=== PATIENT | male | born 1960 | race Native Hawaiian/Other Pacific Islander ===

== ENCOUNTER 2017-01-27 11:03 | Emergency (ER) | payer OTHER ==
[2017-01-27 11:12] VITALS: TEMP 98.5
[2017-01-27] MEDS ORDERED: Acetaminophen-Codeine 300/30 mg Tab PO STA (11:38)
[2017-01-27] MEDS ORDERED: Acetaminophen-Codeine 300/30 mg Tab PO ONE (11:43)
[2017-01-27 11:50] LABS: BASO # 0.1 K/uL (0.0-0.2); BASO % 0.7 % (0.0-2.0); EOS # 0.2 K/uL (0.0-0.7); EOS % 2.1 % (0.0-4.0); HEMATOCRIT 42.3 % (35.0-51.0); LYMPH # 2.3 K/uL (1.0-4.3); LYMPH % 30.8 % (20.0-40.0); MEAN CELL VOLUME 90.2 fL (80.0-94.0); MEAN CORPUSCULAR HEMOGLOBIN 30.3 pg (27.0-31.0); MEAN CORPUSCULAR HGB CONC 33.6 g/dL (33.0-37.0); MEAN PLATELET VOLUME 6.6 fL (7.2-11.7); MONO # 0.5 K/uL (0.0-0.8); MONO % 7.4 % (0.0-10.0); WHITE BLOOD COUNT 7.4 K/uL (4.8-10.8)
[2017-01-27 11:58] LABS: CHLORIDE 98 mmol/L (98-107); POTASSIUM 3.2 mmol/L (3.6-5.2); SODIUM 139 mmol/L (132-148)
[2017-01-27 12:00] LABS: ALB/GLOB RATIO 1.3 (1.0-2.1); AST/SGOT 36 U/L (17-59); BILIRUBIN,TOTAL 0.7 mg/dL (0.2-1.3); CARBON DIOXIDE 31 mmol/L (22-30); GFR AFRICAN-AMERICAN > 60; TOTAL PROTEIN 7.7 g/dL (6.3-8.3)
[2017-01-27 12:01] LABS: ALKALINE PHOSPHATASE 68 U/L (38-126); ALT/SGPT 57 U/L (21-72); BLOOD UREA NITROGEN 14 mg/dL (9-20); CALCIUM 8.3 mg/dl (8.6-10.4); GLUCOSE,RANDOM 99 mg/dL (75-110)
--- NOTE | 2017-01-27 13:55 | C.PDOC ---
History Of Present Illness 56 y/o male presents to emergency department with complaint of left leg pain and swelling, primarily at the lower left thigh, for several days. Patient reports history of varicose veins in the area that sometimes become more painful and swollen. He denies any other medical problems, does not take any medications. Patient also denies chest pain, fever, cough, SOB, falls/injuries. Time Seen by Provider: 01/27/17 11:17 Chief Complaint (Nursing): Lower Extremity Problem/Injury History Per: Patient History/Exam Limitations: no limitations Onset/Duration Of Symptoms: Days Current Symptoms Are (Timing): Worse Severity: Moderate Past Medical History Reviewed: Historical Data, Nursing Documentation, Vital Signs Vital Signs: Last Vital Signs Temp 98.5 F 01/27/17 11:08 Pulse 81 01/27/17 14:36 Resp 16 01/27/17 14:36 BP 161/108 H 01/27/17 14:36 Pulse Ox 97 01/27/17 14:36 - Medical History PMH: No Chronic Diseases Family History: States: No Known Family Hx - Social History Hx Alcohol Use: No Hx Substance Use: No - Immunization History Hx Tetanus Toxoid Vaccination: No Hx Influenza Vaccination: No Hx Pneumococcal Vaccination: No Review Of Systems Except As Marked, All Systems Reviewed And Found Negative. Constitutional: Negative for: Fever, Chills Cardiovascular: Negative for: Chest Pain, Palpitations Respiratory: Negative for: Cough, Shortness of Breath, Wheezing Gastrointestinal: Negative for: Nausea, Vomiting Musculoskeletal: Positive for: Leg Pain (left leg, +swelling) Skin: Negative for: Rash Neurological: Negative for: Headache, Dizziness Physical Exam - Physical Exam Appears: Well, Non-toxic, Other (in mild pain ) Skin: Normal Color, Warm, Dry, No Rash Head: Normacephalic Oral Mucosa: Moist Cardiovascular: Rhythm Regular Respiratory: Normal Breath Sounds, No Rales, No Rhonchi, No Wheezing Gastrointestinal/Abdominal: Normal Exam, Bowel Sounds, Soft, No Tenderness Back: Normal Inspection Extremity: Normal ROM, No Calf Tenderness, Capillary Refill (< 2 sec all digits ), No Deformity, Other (L Lower Extremity: left inferior/medial thigh with large varicose vein, tender and swollen to palpation, no erythema, +warmth to touch) Pulses: Left Dorsalis Pedis: Normal, Right Dorsalis Pedis: Normal Neurological/Psych: Oriented x3, Normal Sensation Gait: Steady ED Course And Treatment - Laboratory Results Result Diagrams: 01/27/17 11:42 01/27/17 11:42 O2 Sat by Pulse Oximetry: 99 (RA) Pulse Ox Interpretation: Normal Progress Note: Blood work and venous doppler ordered. Patient given PO Pain medication. Blue wrap applied to affected area by nurse, checked by me. Reevaluation Time: 14:30 Reassessment Condition: Improved - Physician Consult Information Physician Contacted: Igor Treviño Jr. Outcome Of Conversation: Discussed patient with Dr. Treviño, since clot is in the superificial vein, he recommends no anticoagulation at this time. Patient to be treated with blue wrap/leg elevation, NSAIDs, and repeat doppler in 1 week to r/o progression of clot. Patient instructed to follow up with Dr. Treviño in the office in 1-2 days. He understands he should return to ED if symptoms worsen. Disposition Counseled Patient/Family Regarding: Studies Performed, Diagnosis, Need For Followup, Rx Given - Disposition Referrals: Igor Treviño Jr., MD [Staff Provider] - [facility] [Outside] Disposition: HOME/ ROUTINE Disposition Time: 14:30 Condition: STABLE Additional Instructions: FOLLOW UP WITH DR TREVIÑO WITHIN 1 WEEK YOU NEED REPEAT ULTRASOUND OF LEG IN 1 WEEK USE MEDICATIONS DIRECTED ELEVATE LEG RETURN TO ER IF YOU DEVELOP ANY CONCERNING SYMPTOMS Prescriptions: amLODIPine [Norvasc] 5 mg PO DAILY #30 tab Naproxen [Naprosyn Tab] 375 mg PO BID PRN #25 tab PRN Reason: pain Instructions: Superficial Thrombophlebitis (ED) Print Language: BAHAMIAN - POA Present On Arrival: None - Clinical Impression Clinical Impression: Saphenous vein clot - Scribe Statement The provider has reviewed the documentation as recorded by the Tadeo Higgins All medical record entries made by the Boydiblicha were at my direction and personally dictated by me. I have reviewed the chart and agree that the record accurately reflects my personal performance of the history, physical exam, medical decision making, and the department course for this patient. I have also personally directed, reviewed, and agree with the discharge instructions and disposition.
[2017-01-27] MEDS ORDERED: Naproxen 550 mg Tab PO STA (14:14)
--- NOTE | 2017-01-27 14:15 | VASCLAB ---
PROCEDURE: Lower Extremity Venous Duplex Exam. HISTORY: left leg swelling pain, r/o dvt vs phlebitis PRIORS: None. TECHNIQUE: Bilateral common femoral, femoral, popliteal and posterior tibial, peroneal and great saphenous veins were evaluated. Flow was assessed with color Doppler, compressibility, assessment of phasic flow and augmentation response. Report prepared by Izaiah Hill, BS, RVT FINDINGS: RIGHT: 1. Common Femoral Vein: 1.1. Compressibility - Fully compressible: Thrombus - None : Flow - Phasic: Augmentation -Normal: Reflux - None. 2. Femoral Vein: 2.1. Compressibility - Fully compressible: Thrombus - None : Flow - Phasic: Augmentation -Normal: Reflux - None. 3. Popliteal Vein: 3.1. Compressibility - Fully compressible: Thrombus - None : Flow - Phasic: Augmentation -Normal: Reflux - None. 4. Posterior Tibial Vein: 4.1. Compressibility - Fully compressible: Thrombus - None: Flow - Phasic: Augmentation -Normal: Reflux - None. 5. Peroneal Vein: 5.1. Compressibility - Fully compressible: Thrombus - None: Flow - Phasic: Augmentation -Normal: Reflux - None. 6. Great Saphenous Vein: 6.1. Compressibility - Fully compressible: Thrombus - None: Flow - Phasic: Augmentation - Normal: Reflux - Severe. LEFT: 1. Common Femoral Vein: 1.1. Compressibility - Fully compressible: Thrombus - None: Flow - Phasic: Augmentation -Normal: Reflux - None. 2. Femoral Vein: 2.1. Compressibility - Fully compressible: Thrombus - None: Flow - Phasic: Augmentation -Normal: Reflux - None. 3. Popliteal Vein: 3.1. Compressibility - Fully compressible: Thrombus - None : Flow - Phasic: Augmentation -Normal: Reflux - None. 4. Posterior Tibial Vein: 4.1. Compressibility - Fully compressible: Thrombus - None: Flow - Phasic: Augmentation -Normal: Reflux - None. 5. Peroneal Vein: 5.1. Compressibility - Fully compressible: Thrombus - None: Flow - Phasic: Augmentation -Normal: Reflux - None. 6. Great Saphenous Vein: 6.1. Compressibility - Fully compressible: Thrombus - None: Flow - Phasic: Augmentation - Normal: Reflux - None. OTHER FINDINGS: Right: Severe valvular incompetence of the right greater saphenous vein. Left: None significant. IMPRESSION: Right: No evidence of deep or superficial vein thrombosis of the right lower extremity. Left: Acute thrombosis of the left ankle to distal thigh greater saphenous vein with severe reduction of the venous return.
[2017-01-27 14:17] VITALS: RESP 16
[2017-01-27] MEDS ORDERED: Naproxen 550 mg Tab PO ONE (14:20)
[2017-01-27] MEDS ORDERED: Potassium Chloride 20 mEq ER Tab PO STA (14:21)
[2017-01-27] MEDS ORDERED: Potassium Chloride 20 mEq ER Tab PO ONE (14:25)
[2017-01-27 14:37] VITALS: BP 161/108; PULSE 81
[2017-02-03 05:27] VITALS: O2SAT 99
== END 2017-01-27 14:36 | disposition home or self-care (01) ==
LOC: C.ER 11:03
DX: I82.492 Acute embolism and thrombosis of other specified deep vein of left lower extremity (principal)